=== PATIENT | male | born 1970 | race Caucasian/White ===

== ENCOUNTER 2019-02-26 08:13 | Emergency (ER) | payer SELFPAY ==
[~2019-02-26] VITALS: Ht 185.4 cm; Wt 135.0 kg
[~2019-02-26 08:13] MED LIST: NOCURR
[2019-02-26] MEDS ORDERED: KETOROLAC TROMETHAMINE 30 MG/ML VIAL IVP ONE (09:15)
[2019-02-26] MEDS ORDERED: SODIUM CHLORIDE 0.9% 1,000 ML IV ONE ×2 (09:15→12:00)
[2019-02-26 10:16] LABS: APPEARANCE,URINE CLEAR (CLEAR); BILIRUBIN,URINE NEGATIVE (NEGATIVE); GLUCOSE, URINE (UA) NEGATIVE (NEGATIVE); KETONES,URINE NEGATIVE (NEGATIVE); LEUKOCYTE ESTERASE ,URINE NEGATIVE (NEGATIVE); NITRATE,URINE NEGATIVE (NEGATIVE); OCCULT BLOOD,URINE NEGATIVE (NEGATIVE); PH,URINE 7.5 (5.0-8.0); PROTEIN,URINE POS 1+ (NEGATIVE); UROBILINOGEN,URINE 0.2 mg/dL (<=1.0)
[2019-02-26 10:52] LABS: BACTERIA,URINE Rare /HPF (None Seen); RBC,URINE 0-2 /HPF (0-2); SQUAMOUS EPITHELIAL CELL,UR Rare /LPF (None Seen); WBC,URINE 0-2 /HPF (0-5)
[2019-02-26] MEDS ORDERED: MORPHINE SULFATE 4 MG/ML SYRINGE IVP ONE (12:00)
[2019-02-26] MEDS ORDERED: TAMSULOSIN HCL 0.4 MG CAPSULE PO ONE (12:00)
[2019-02-26 13:12] VITALS: BP 116/78
== END 2019-02-26 13:20 | disposition home or self-care (01) ==
LOC: EMS 08:15
DX: N13.2 Hydronephrosis with renal and ureteral calculous obstruction (principal); R91.1 Solitary pulmonary nodule; F15.90 Other stimulant use, unspecified, uncomplicated
CPT/HCPCS: 74176; 76870; 81001; 87491; 87591; 96374; 96375; 99284; J1885; J2270; J7030